=== PATIENT | male | born 1975 | race Two or more races ===

== ENCOUNTER 2020-05-06 14:54 | Outpatient (CLI) | payer BC ==
--- NOTE | 2020-05-06 16:20 | RAD ---
LEFT HIP TWO VIEWS: 05/06/20 HISTORY: Pain in the left hip. FINDINGS/IMPRESSION: No fracture, dislocation, or bony destruction is seen. No significant arthritic changes are seen. POS: OFF
== END 2020-05-06 14:55 | disposition home or self-care (01) ==
LOC: BICRAD 14:54
PROVIDERS: ATTEND Family Medicine
DX: M25.552 Pain in left hip (principal)

== ENCOUNTER 2023-03-04 16:39 | Outpatient (CLI) | payer BC | END 2023-03-04 16:40 | disposition home or self-care (01) | LOC: SCSRAD 16:39 | PROVIDERS: ATTEND Family Medicine | DX: R05.3 Chronic cough (principal) | CPT/HCPCS: 71046 ==